=== PATIENT | male | born 1960 | race Caucasian/White ===

== ENCOUNTER 2016-12-20 22:52 | Emergency (ER) | payer MEDICARE, MEDICAID ==
[2016-12-21] MEDS ORDERED: Ibuprofen 600 MG Tab PO ONE (00:04)
--- NOTE | 2016-12-21 00:10 | EDM.PDOC ---
ED HPI GENERAL MEDICAL PROBLEM - General Chief Complaint: Lower Extremity Injury/Pain Stated Complaint: INJURY TO RT ANKLE Time Seen by Provider: 12/20/16 23:30 Source of Information: Reports: Patient - History of Present Illness INITIAL COMMENTS - FREE TEXT/NARRATIVE: 56 years old w gus came to the ed 8 days after he injured his r ankle. Pt was seen in [facility], where he received a splint, crutches and pain meds. Pt is on the way to [facility] a new job but forgot his pain meds and crutches in [place]. He came to the ed to get pain meds and crutches. He does not have specific medical issues. No N/V/D or any other med issues. Onset: Unknown/Unsure Onset Date: 11/16/16 Onset Time: 08:00 Duration: Week(s):, Intermittent Location: Reports: Lower Extremity, Right Quality: Reports: Dull Severity: Mild Improves with: Reports: Rest Worsens with: Reports: Movement Context: Reports: Exercise Associated Symptoms: Reports: No Other Symptoms R foot/ankle Pain Score (Numeric/FACES): 7 - Related Data Allergies Allergy/AdvReac Type Severity Reaction Status Date / Time No Known Allergies Allergy Verified 12/20/16 23:36 Home Meds: Home Meds Acetaminophen/HYDROcodone [[place] 325-5 MG] 1 - 2 tab Q4H PRN 12/20/16 [History] Ibuprofen 200 mg PO TID PRN 12/20/16 [History] PARoxetine [Paxil] 30 mg PO DAILY 12/20/16 [History] traZODone 50 mg PO DAILY 12/20/16 [History] Ibuprofen [Motrin] 600 mg PO Q8H PRN #30 tablet 12/21/16 [Rx] Past Medical History Musculoskeletal History: Reports: Arthritis, Fracture, Other (See Below) Other Musculoskeletal History: fx R foot, Neurological History: Reports: Concussion Psychiatric History: Reports: Anxiety, Bipolar, Depression, Psych Hospitalization(s), Schizophrenia, Suicidal Ideation Endocrine/Metabolic History: Reports: Obesity/BMI 30+ - Infectious Disease History Infectious Disease History: Reports: Chicken Pox, Measles, Mumps Social & Family History - Family History Family Medical History: Noncontributory - Tobacco Use Smoking Status *Q: Never Smoker - Caffeine Use Caffeine Use: Reports: Coffee, Soda - Recreational Drug Use Recreational Drug Use: No Review of Systems - Review of Systems Review Of Systems: See Below Constitutional: Reports: No Symptoms Eyes: Reports: No Symptoms Ears: Reports: No Symptoms Nose: Reports: No Symptoms Mouth/Throat: Reports: No Symptoms Respiratory: Reports: No Symptoms Cardiovascular: Reports: No Symptoms GI/Abdominal: Reports: No Symptoms Genitourinary: Reports: No Symptoms Musculoskeletal: Reports: Joint Pain (r ankle) Skin: Reports: No Symptoms Neurological: Reports: No Symptoms Psychiatric: Reports: No Symptoms ED EXAM, GENERAL - Physical Exam Exam: See Below Exam Limited By: Physical Impairment General Appearance: Alert, WD/WN, Mild Distress Eye Exam: Bilateral Eye: Normal Inspection Ears: Normal External Exam Ear Exam: Bilateral Ear: Auricle Normal Nose: Normal Inspection, Normal Mucosa Throat/Mouth: Normal Inspection Head: Atraumatic, Normocephalic Neck: Normal Inspection, Supple Respiratory/Chest: No Respiratory Distress Cardiovascular: Normal Peripheral Pulses, Regular Rate, Rhythm GI/Abdominal: Normal Bowel Sounds, Soft, Non-Tender (Male) Exam: Deferred Rectal (Males) Exam: Deferred Back Exam: Normal Inspection Extremities: Limited Range of Motion (r ankle) Neurological: Alert, Oriented, CN II-XII Intact, Abnormal Gait Psychiatric: Normal Affect, Normal Mood Skin Exam: Warm, Dry, Intact, Normal Color, No Rash Lymphatic: No Adenopathy Course - Vital Signs Text/Narrative:: 56 years old charanjit weber came to the ed 8 days after he injured his r ankle. Pt was seen in [facility], where he received a splint, crutches and pain meds. Pt is on the way to [facility] [place] a new job but forgot his pain meds and crutches in [place]. He came to the ed to get pain meds and crutches. He does not have specific medical issues. No N/V/D or any other med issues. PE: " Slow" 56 y.o.w.m. NAD poor dentition, dehydrated, splint on his r ankle. Imaging: Not indicated Impression: R ankle pain Tx: Motrin, Cutches, Ice Reexam: Improved Plan; D/C with instructions. Last Recorded V/S: Last Vital Signs Temp 36.6 C 12/20/16 23:30 Pulse 80 12/20/16 23:30 Resp 18 12/20/16 23:30 BP 127/82 12/20/16 23:30 Pulse Ox 97 12/20/16 23:30 - Orders/Labs/Meds Meds: Medications Discontinued Medications Generic Name Dose Route Start Last Admin Trade Name Idalia PRN Reason Stop Dose Admin Ibuprofen 600 mg 12/21/16 00:04 Motrin PO 12/21/16 00:05 ONETIME ONE Departure - Departure Time of Disposition: 00:06 Disposition: Home, Self-Care 01 Condition: Good Clinical Impression: Right ankle pain Qualifiers: Chronicity: unspecified Qualified Code(s): M25.571 - Pain in right ankle and joints of right foot - Discharge Information Prescriptions: Ibuprofen [Motrin] 600 mg PO Q8H PRN #30 tablet PRN Reason: Pain Instructions: Ankle Pain Referrals: PCP,Not In Area [Primary Care Provider] - Forms: ED Department Discharge Additional Instructions: ICE, rest and elevation. Please use crutches, please increase water intake, please follow up with your regular doctor, come back if worse. Ibuprofen 600mg every 6-8hrs with food as needed for pain.
[2016-12-21 01:47] VITALS: BP 132/74
== END 2016-12-21 00:37 | disposition home or self-care (01) ==
LOC: FB.ED 22:52
DX: M25.571 Pain in right ankle and joints of right foot (principal); E66.9 Obesity, unspecified; F41.9 Anxiety disorder, unspecified; Z79.899 Other long term (current) drug therapy
CPT/HCPCS: 99283; A9270; 99282